=== PATIENT | female | born 1995 | race Caucasian/White ===

== ENCOUNTER 2018-02-15 22:47 | Emergency (ER) | payer OTHER | END 2018-02-16 01:02 | disposition home or self-care (01) | LOC: FTE 22:47 | DX: F41.9 Anxiety disorder, unspecified (principal); F17.210 Nicotine dependence, cigarettes, uncomplicated | CPT/HCPCS: 93005; 99283-25 ==

== ENCOUNTER 2018-08-04 23:44 | Emergency (ER) | payer OTHER | END 2018-08-05 07:40 | disposition home or self-care (01) | LOC: FTE 23:44 | DX: S61.412A Laceration without foreign body of left hand, initial encounter (principal); F17.210 Nicotine dependence, cigarettes, uncomplicated; W26.0XXA Contact with knife, initial encounter; Y92.9 Unspecified place or not applicable | CPT/HCPCS: 12001; 99283-25 ==